=== PATIENT | male | born 1940 | race Caucasian/White ===

== ENCOUNTER → 2018-02-28 | Outpatient (CLI) | payer MEDICARE, MEDICAID ==
[~2018-02-28] MED LIST: IOHEXOL-300 100 ML BOTTLE ONE
== END | disposition home or self-care (01) ==
LOC: NM 07:37
PROVIDERS: ATTEND Urology
DX: C61 Malignant neoplasm of prostate (principal); N40.0 Benign prostatic hyperplasia without lower urinary tract symptoms; M17.11 Unilateral primary osteoarthritis, right knee; Z90.49 Acquired absence of other specified parts of digestive tract
CPT/HCPCS: 72193; 78306; A9503; Q9967

== ENCOUNTER → 2018-11-27 | Outpatient (CLI) | payer MEDICARE, MEDICAID | END | disposition home or self-care (01) | LOC: US 12:24 | PROVIDERS: ATTEND Internal Medicine Nephrology | DX: E04.1 Nontoxic single thyroid nodule (principal) | CPT/HCPCS: 76536 ==

== ENCOUNTER 2019-09-12 10:32 | Emergency (ER) | payer MEDICARE, MEDICAID ==
[~2019-09-12] VITALS: Ht 167.6 cm; Wt 68.0 kg
[2019-09-12 10:54] VITALS: BP 129/69
== END 2019-09-12 12:58 | disposition home or self-care (01) ==
LOC: ER 10:32
DX: B35.9 Dermatophytosis, unspecified (principal)
CPT/HCPCS: 99283

== ENCOUNTER → 2020-08-12 | Outpatient (CLI) | payer MEDICARE, MEDICAID | END | disposition home or self-care (01) | LOC: RAD 11:09 | PROVIDERS: ATTEND Internal Medicine Nephrology | DX: Z01.810 Encounter for preprocedural cardiovascular examination (principal); I45.10 Unspecified right bundle-branch block; I44.5 Left posterior fascicular block | CPT/HCPCS: 71046; 93005 ==